=== PATIENT | male | born 1980 | race American Indian/Alaskan Native ===

== ENCOUNTER 2019-12-30 14:03 | Emergency (ER) | payer MEDICAID ==
[2019-12-30 14:17] VITALS: BP 118/75
--- NOTE | 2019-12-30 14:19 | Emergency Department Report ---
ED Lower Extremity HPI - General Chief Complaint: Extremity Injury, Lower Stated Complaint: LEFT FOOT HURTS/MIDDLE TOE HUI Time Seen by Provider: 12/30/19 14:15 Source: patient Mode of arrival: Ambulatory Limitations: No Limitations - History of Present Illness Initial Comments: This is a 39-year-old male nontoxic, well nourished in appearance, no acute signs of distress presents to the ED with c/o of chronic left foot pain. Patient stated symptoms of pain is intermittent x3 years. Patient denies any new trauma or injuries. Denies decreased ROM, joint swelling, redness, or abnormal gait. Denies any fever, chills, nausea, vomiting, headache, stiff neck, chest pain or shortness of breath. Patient denies any numbness or tingling. Denies any allergies. MD Complaint: foot injury -: year(s) Injury: Foot: Left Severity: mild Severity scale (0 -10): 3 Improves With: nothing Worsens With: nothing Associated Symptoms: ambulatory. denies: snap/pop sensation, swelling, numbness, tingling, unable to bear weight, able to partially bear weight - Related Data Previous Rx's Medication Instructions Recorded Last Taken Type Benztropine [Cogentin] 1 mg PO DAILY #30 tablet 12/20/14 Unknown Rx risperiDONE [RisperDAL] 1 mg PO DAILY #30 tablet 12/20/14 Unknown Rx Allergies Allergy/AdvReac Type Severity Reaction Status Date / Time No Known Allergies Allergy Verified 12/30/19 14:08 ED Review of Systems ROS: Stated complaint: LEFT FOOT HURTS/MIDDLE TOE HUI Other details as noted in HPI Constitutional: denies: chills, fever Eyes: denies: eye pain, eye discharge, vision change ENT: denies: ear pain, throat pain Respiratory: denies: cough, shortness of breath, wheezing Cardiovascular: denies: chest pain, palpitations Endocrine: no symptoms reported Gastrointestinal: denies: abdominal pain, nausea, diarrhea Genitourinary: denies: urgency, dysuria Musculoskeletal: denies: back pain, joint swelling, arthralgia Skin: denies: rash, lesions Neurological: denies: headache, weakness, paresthesias Psychiatric: denies: anxiety, depression Hematological/Lymphatic: denies: easy bleeding, easy bruising ED Past Medical Hx - Past Medical History Previous Medical History?: Yes Hx Psychiatric Treatment: Yes Additional medical history: schizophrenia - Surgical History Past Surgical History?: No - Social History Smoking Status: Never Smoker Substance Use Type: None - Medications Home Medications: Home Medications Medication Instructions Recorded Confirmed Last Taken Type Benztropine [Cogentin] 1 mg PO DAILY #30 tablet 12/20/14 12/21/14 Unknown Rx risperiDONE [RisperDAL] 1 mg PO DAILY #30 tablet 12/20/14 12/21/14 Unknown Rx ED Physical Exam - General Limitations: No Limitations General appearance: alert, in no apparent distress - Head Head exam: Present: atraumatic, normocephalic - Extremities Exam Extremities exam: Present: normal inspection, full ROM, normal capillary refill, other (left middle toe callus). Absent: tenderness, joint swelling, calf tenderness - Back Exam Back exam: Present: normal inspection, full ROM - Neurological Exam Neurological exam: Present: alert, oriented X3, normal gait - Psychiatric Psychiatric exam: Present: normal affect, normal mood - Skin Skin exam: Present: warm, dry, intact, normal color. Absent: rash ED Course - Reevaluation(s) Reevaluation #1: 12/30/19 14:18 Patient is speaking in full sentences with no signs of distress noted. ED Lower Extremity MDM - Medical Decision Making This is a 39-year-old male that presents with chronic callus pain. Patient is stable and was examined by me. Exam does not show any acute conditions. No joint effusion, no redness, no decreased ROM. Normal gait. Patient was instructed to Follow-up with a orthopedic doctor in 3-5 days or if symptoms worsen and continue return to emergency room as soon as possible. At time of discharge, the patient does not seem toxic or ill in appearance. No acute signs of distress noted. Patient agrees to discharge treatment plan of care. No further questions noted by the patient. Critical care attestation.: If time is entered above; I have spent that time in minutes in the direct care of this critically ill patient, excluding procedure time. ED Disposition Clinical Impression: Chronic toe pain, left foot Disposition: Z MED SCREENING EXAM-LEFT Is pt being admited?: No Does the pt Need Aspirin: No Condition: Stable Additional Instructions: Follow-up with a orthopedic doctor in 3-5 days or if symptoms worsen and continue return to emergency room as soon as possible. Referrals: PRIMARY CARE, [Referring] - 3-5 Days TIFFANIE GOLDEN MD [Staff Physician] - 3-5 Days DARIA HAYNES MD [Staff Physician] - 3-5 Days
== END 2019-12-30 14:30 | disposition left against medical advice (07) ==
LOC: ED 14:03
DX: M79.675 Pain in left toe(s) (principal); G89.29 Other chronic pain; F20.9 Schizophrenia, unspecified
CPT/HCPCS: 99282

== ENCOUNTER 2020-01-12 17:18 | Emergency (ER) | payer MEDICAID ==
[2020-01-12 17:43] VITALS: BP 105/66
--- NOTE | 2020-01-12 18:04 | Emergency Department Report ---
ED General Adult HPI - General Chief complaint: Psych Stated complaint: NEEDS MENTAL EVAL Time Seen by Provider: 01/12/20 17:56 Source: patient, RN notes reviewed, old records reviewed Mode of arrival: Ambulatory Limitations: No Limitations - History of Present Illness Initial comments: Patient is a 39-year-old gentleman. He is not known to myself previously. He presents to the ER today with a primary complaint of request for Risperdal refill. Patient was following up at the [facility], was taking 2 mg daily, however, he reports that he ran out of his prescription 2 months ago, and he indicates that the aforementioned facility dropped him as a patient He reports that he has to get some "paperwork back to them", in order to be reestablished as a patient. He denies physical pain at this time, and has passive suicidality for months. However, the patient states he does not want to actively harm himself, that he wants to live, and that he does not have access to guns, firearms, and he is not homicidal. He has chronic hallucinations. The patient is informed that there are many patients with coronavirus in this emergency room, and he states "I definitely do not want to get that." He also states that he came here today primarily, instead of going to a psychiatric facility, because this is what he is done in the past. He states that if he were cleared, or given instructions on how to get to a psychiatric facility, such as [place] [place], or [place], he would be able to get there on his own, taking public transportation. He denies physical pain at this time. -: week(s), month(s) Consistency: constant Improves with: none Worsens with: none Associated Symptoms: denies other symptoms - Related Data Previous Rx's Medication Instructions Recorded Last Taken Type Benztropine [Cogentin] 1 mg PO DAILY #30 tablet 12/20/14 Unknown Rx risperiDONE [RisperDAL] 1 mg PO DAILY #30 tablet 12/20/14 Unknown Rx Allergies Allergy/AdvReac Type Severity Reaction Status Date / Time No Known Allergies Allergy Verified 12/30/19 14:08 ED Review of Systems ROS: Stated complaint: NEEDS MENTAL EVAL Other details as noted in HPI Comment: All other systems reviewed and negative Psychiatric: other ED Past Medical Hx - Past Medical History Previous Medical History?: Yes Hx Psychiatric Treatment: Yes Additional medical history: schizophrenia - Surgical History Past Surgical History?: No - Social History Smoking Status: Never Smoker Substance Use Type: None - Medications Home Medications: Home Medications Medication Instructions Recorded Confirmed Last Taken Type Benztropine [Cogentin] 1 mg PO DAILY #30 tablet 12/20/14 12/21/14 Unknown Rx risperiDONE [RisperDAL] 1 mg PO DAILY #30 tablet 12/20/14 12/21/14 Unknown Rx ED Physical Exam - General Limitations: No Limitations General appearance: alert, in no apparent distress - Head Head exam: Present: atraumatic, normocephalic - Eye Eye exam: Present: normal appearance, EOMI, other (Visual acuity intact to finger counting, color perception, reading at a close distance). Absent: nystagmus - ENT ENT exam: Present: normal exam, normal orophraynx, mucous membranes moist, normal external ear exam - Neck Neck exam: Present: normal inspection, full ROM. Absent: tenderness, meningismus - Respiratory Respiratory exam: Present: normal lung sounds bilaterally. Absent: respiratory distress - Cardiovascular Cardiovascular Exam: Present: regular rate, normal rhythm, normal heart sounds. Absent: bradycardia, tachycardia, irregular rhythm, systolic murmur, diastolic murmur, rubs, gallop - GI/Abdominal GI/Abdominal exam: Present: soft. Absent: distended, tenderness, guarding, rebound, rigid, pulsatile mass - Rectal Rectal exam: Present: deferred - Extremities Exam Extremities exam: Present: normal inspection, full ROM, other (2+ pulses noted in the bilateral upper and lower extremities. There is no palpable cord. negative Homans sign. Muscular compartments are soft. The pelvis is stable.). Absent: pedal edema, calf tenderness - Back Exam Back exam: Present: normal inspection, full ROM. Absent: tenderness, CVA ten derness (R), CVA tenderness (L), paraspinal tenderness, vertebral tenderness - Neurological Exam Neurological exam: Present: alert, oriented X3, normal gait, other (There is no facial droop. The tongue is midline. Extraocular movements are intact bilaterally. There is 5 out of 5 strength in bilateral upper and lower extremities. Sensation is intact to light touch bilateral upper and lower extremities. There is a normal gait.). Absent: motor sensory deficit - Psychiatric Psychiatric exam: Present: flat affect. Absent: agitated, manic, homicidal ideation - Skin Skin exam: Present: warm, dry, intact, normal color. Absent: rash ED Course Vital Signs 01/12/20 17:42 Temperature 98.6 F Pulse Rate 62 Respiratory 18 Rate Blood Pressure 105/66 [Right] O2 Sat by Pulse 98 Oximetry - Reevaluation(s) Reevaluation #1: 01/12/20 18:24 Differential diagnosis, including but not limited to: Medication refill, general medical examination Assessment and plan: 39-year-old gentleman, who is afebrile with reassuring vital signs, pleasant, calm and cooperative, with chronic hallucinations, and chronic passive thoughts of self-harm. However, when I engage the patient, he tells me that he is able to take public transportation to get to a psychiatric facility, he is very concerned about the risk of exposure to coronavirus, and he does not want to get coronavirus, and he does not want to from coronavirus. He tells me that he came here today primarily because this is what he has done in the past. He indicates to me if I am able to refill his medicine, that he will be able to follow-up, and he states that he has things in his life that he wants to live for. Reevaluation #2: 01/12/20 18:54 Resting comfortably at this time, and in no acute distress. Patient is evaluated by mental health liaison, who has in turn presents of the case to Dr. Lenora Oconnor, who has graciously agreed to call the patient's prescriptions at a local [facility] pharmacy. We all are in agreement that the patient does not meet criteria for 1013 hold or involuntary hold at this time. Patient will be given a nocturnal dose of Risperdal here in the emergency room, and he will be instructed to go to the local pharmacy to oyster picker his prescriptions. He is also given resources for outpatient follow-up ED Medical Decision Making - Lab Data Result diagrams: 01/12/20 18:04 01/12/20 18:04 Vital Signs 01/12/20 17:42 Temperature 98.6 F Pulse Rate 62 Respiratory 18 Rate Blood Pressure 105/66 [Right] O2 Sat by Pulse 98 Oximetry - EKG Data -: EKG Interpreted by Me EKG shows normal: sinus rhythm Rate: bradycardia - EKG Data 01/12/20 18:28 Sinus rhythm, bradycardia, normal axis, QTC within normal limits, Q waves noted in the inferior leads, high left ventricular voltage, the EKG is abnormal, there is no prior for comparison, the EKG is not a STEMI. Critical care attestation.: If time is entered above; I have spent that time in minutes in the direct care of this critically ill patient, excluding procedure time. ED Disposition Clinical Impression: Medication refill, General medical exam Disposition: - TO HOME OR SELFCARE Is pt being admited?: No Does the pt Need Aspirin: No Condition: Stable Additional Instructions: Avoid consumption of alcohol, recreational drugs, marijuana, smoke products. Patient may follow-up at the following pharmacy as soon as possible to oyster picker his outpatient prescriptions: [facility]: Address: [address] [place] [id number] At this point in time, the patient does not appear to have an immediate medical contraindication to outpatient follow-up, however, if the patient would like to seek voluntary psychiatric treatment, at the current time, he does not have an immediate medical contraindication to psychiatric therapy, and evaluation, consultation and placement if he so desires. Patient may follow-up with any of the outpatient psychiatric facilities as follows: Professional and Agency Contacts To help [facility](28/04) [place] Crisis Line: Suicide Prevention Line: Crisis Text Line: Text START to 666199 Emergency: 911 Outpatient COMMUNITY Behavioral Health Resources: [place]KALB: [facility] [address] [place], [place] [address] KATHRYN: [facility] - [address] [place] [address] Friday thru Friday - 8am - 5pm [facility] Address: [address] [place] [address] Friday thru Friday- 7am-2pm [facility] Address: [address] [place] [address] Friday thrfriday: 8:30AM-5PM [facility] NEED HELP? People experiencing homelessness seek refuge at [place] five days a week in need of help for a wide range of problems, ranging from the working poor sleeping in a car, women and children escaping domestic violence, and people who have no means of care home. If you are in need of help or know someone who does, please contact us at [email or web address] call , or come to our offices at [address] [place] [address], Friday-Friday beginning at 8AM. [facility] Address: [address] [place] [address] Client Engagement [phone] Regular program admission occurs Friday through Friday at 7:00 amand operates o n a first come, first serve basis.Because we cant anticipate program availability in advance andprogram spots are in high demand, we recommend arriving early. Space fills up fast! Next steps can include: Assignment to a [facility] program bed Connection to and placement in a partner program, or Referral to a partner agency City of Refuge: [facility] Address: [address] [place] [address] How do I join the [facility] housing program? Our housing programs are offered based on availability. If you are looking to participate in our housing program, simply call [phone] to find out if we have available space. If you get the voicemail, make sure to leave your name, best contact number to reach you, your need, and if you have children that would need housing as well. Since we do receive many calls, please allow up to 48 hours for one of our housing specialists to return your call. If we do not have vacancies, we suggest callingthe [facility] hotline at 211 for additional housing options. Follow-up with the primary medical doctor within the next 4 to 6 weeks. Patient should wash his hands very thoroughly with soap and water, not touch his hands to his face, eyes or mouth, the patient should return to the emergency room right away with new, worsened or different symptoms, or symptoms not present on the initial emergency room evaluation. Referrals: DARIA HAYNES MD [Staff Physician] - as needed [facility] [Provider Group] - as needed [facility] [Provider Group] - as needed
[2020-01-12 18:33] LABS: Hematocrit 41.4 % (35.5-45.6); Hemoglobin 13.8 gm/dl (11.8-15.2); Mean Corpuscular HGB Conc 33 % (32-34); Mean Corpuscular Volume 83 fl (84-94); Platelet Count 186 K/mm3 (140-440); Red Cell Distribution Width 15.2 % (13.2-15.2)
[2020-01-12 18:50] LABS: BUN/Creatinine Ratio 10; Blood Urea Nitrogen 12 mg/dL (9-20); Calcium 9.1 mg/dL (8.4-10.2); Hemolysis Index 14
[2020-01-12] MEDS ORDERED: risperiDONE 1 MG TAB PO ONE (18:52)
[2020-01-13] MEDS ORDERED: risperiDONE 1 MG TAB PO SCH (10:00)
[2020-01-13] MEDS ORDERED: BENZTROPINE 1 MG TAB PO SCH (10:00)
== END 2020-01-12 19:30 | disposition home or self-care (01) ==
LOC: ED 17:18
DX: F20.9 Schizophrenia, unspecified (principal); Z76.0 Encounter for issue of repeat prescription
CPT/HCPCS: 36415; 80048; 80320; 82550; 85027; 93005; 93010; 99284; G0480

== ENCOUNTER 2020-01-21 23:06 | Emergency (ER) | payer MEDICAID ==
[2020-01-22 00:12] LABS: Bilirubin,Urine NEG (Negative); Blood,Urine NEG (Negative); Color,Urine Yellow (Yellow); Mucus,Urine FEW /HPF; Protein,Urine <15 mg/dL mg/dL (Negative); Urobilinogen,Urine < 2.0 mg/dL (<2.0); WBC,Urine < 1.0 /HPF (0.0-6.0)
[2020-01-22 00:20] LABS: Amphetamine Screen,Urine PRESUMPTIVE NEGATIVE; Benzodiazepines Screen,Urine PRESUMPTIVE NEGATIVE; Cocaine Screen,Urine PRESUMPTIVE NEGATIVE; Methadone Screen,Urine PRESUMPTIVE NEGATIVE; Opiate Screen,Urine PRESUMPTIVE NEGATIVE
[2020-01-22 00:24] LABS: Basophils % (Auto) 0.9 % (0.0-1.8); Eosinophils # (Auto) 0.1 K/mm3 (0.0-0.4); Eosinophils % (Auto) 2.7 % (0.0-4.3); Lymphocytes # (Auto) 1.4 K/mm3 (1.2-5.4); Lymphocytes % (Auto) 39.7 % (13.4-35.0); Mean Corpuscular HGB Conc 34 % (32-34); Mean Corpuscular Volume 83 fl (84-94); Monocytes # (Auto) 0.3 K/mm3 (0.0-0.8); Monocytes % (Auto) 7.1 % (0.0-7.3); Platelet Count 203 K/mm3 (140-440); Red Blood Count 4.57 M/mm3 (3.65-5.03); Red Cell Distribution Width 15.4 % (13.2-15.2)
[2020-01-22 00:30] LABS: BUN/Creatinine Ratio 7; Blood Urea Nitrogen 8 mg/dL (9-20); Hemolysis Index 6
[2020-01-22 00:39] LABS: Cannabinoid Screen,Urine PRESUMPTIVE POSITIVE
--- NOTE | 2020-01-22 00:56 | Emergency Department Report ---
<TYRONE KLEIN - Last Filed: 01/22/20 00:53> ED Psych HPI - General Chief Complaint: Medical Clearance Stated Complaint: ERAN GUERRERO Time Seen by Provider: 01/21/20 23:45 Source: patient Mode of arrival: Ambulatory Limitations: No Limitations - History of Present Illness Initial Comments: 39-year-old male with a past medical history of schizophrenia presents to the hospital stating that he needs placement into a psychiatric facility for treatment of schizophrenia. Patient is hearing voices that "stressed him out". He states that he is having intermittent conflicts with his family. He denies suicidal or homicidal ideation. Since October patient has been on q. monthly shots for his psychiatric disorder with last dose received yesterday. He is not currently on any oral antipsychotics and denies alcohol or drug abuse. No physical complaints reported - Related Data Previous Rx's Medication Instructions Recorded Last Taken Type Benztropine [Cogentin] 1 mg PO DAILY #30 tablet 01/12/20 Unknown Rx risperiDONE [RisperDAL] 2 mg PO QDAY #60 tablet 01/12/20 Unknown Rx Allergies Allergy/AdvReac Type Severity Reaction Status Date / Time No Known Allergies Allergy Verified 12/30/19 14:08 ED Review of Systems Comment: All other systems reviewed and negative ED Past Medical Hx - Past Medical History Previous Medical History?: Yes Hx Psychiatric Treatment: Yes Additional medical history: schizophrenia - Surgical History Past Surgical History?: No - Social History Smoking Status: Current Every Day Smoker Substance Use Type: None - Medications Home Medications: Home Medications Medication Instructions Recorded Confirmed Last Taken Type Benztropine [Cogentin] 1 mg PO DAILY #30 tablet 01/12/20 01/22/20 Unknown Rx risperiDONE [RisperDAL] 2 mg PO QDAY #60 tablet 01/12/20 01/22/20 Unknown Rx ED Physical Exam - General Limitations: No Limitations - Other Other exam information: General: No acute distress Head: Atraumatic Eyes: normal appearance ENT: Moist mucous membranes Neck: Normal appearance, no midline tenderness Chest: Clear to auscultation bilaterally CV: Regular rate and rhythm Abdomen: Soft, normal bowel sounds, nontender, nondistended, no rebound or guarding Back: Normal inspection Extremity: Normal inspection, full range of motion Neuro: Alert O x 3, no facial asymmetry, speech clear, no gross motor sensory deficit Psych: Appropriate behavior Skin: No rash ED Medical Decision Making - Lab Data Result diagrams: 01/21/20 23:55 01/21/20 23:55 Lab Results 01/21/20 01/21/20 01/21/20 Range/Units 23:45 23:45 23:55 WBC 3.6 L (4.5-11.0) K/mm3 RBC 4.57 (3.65-5.03) M/mm3 Hgb 13.0 (11.8-15.2) gm/dl Hct 38.0 (35.5-45.6) % MCV 83 L (84-94) fl MCH 29 (28-32) pg MCHC 34 (32-34) % RDW 15.4 H (13.2-15.2) % Plt Count 203 (140-440) K/mm3 Lymph % (Auto) 39.7 H (13.4-35.0) % [place] % (Auto) 7.1 (0.0-7.3) % Eos % (Auto) 2.7 (0.0-4.3) % Baso % (Auto) 0.9 (0.0-1.8) % Lymph # 1.4 (1.2-5.4) K/mm3 [place] # 0.3 (0.0-0.8) K/mm3 Eos # 0.1 (0.0-0.4) K/mm3 Baso # 0.0 (0.0-0.1) K/mm3 Seg Neutrophils % 49.6 (40.0-70.0) % Seg Neutrophils # 1.8 (1.8-7.7) K/mm3 Sodium (137-145) mmol/L Potassium (3.6-5.0) mmol/L Chloride (98-107) mmol/L Carbon Dioxide (22-30) mmol/L Anion Gap mmol/L BUN (9-20) mg/dL Creatinine (0.8-1.5) mg/dL Estimated GFR ml/min BUN/Creatinine Ratio % Glucose (75-100) mg/dL Calcium (8.4-10.2) mg/dL Urine Color Yellow (Yellow) Urine Turbidity Clear (Clear) Urine pH 6.0 (5.0-7.0) Ur Specific [place] 1.010 (1.003-1.030) Urine Protein <15 mg/dl (Negative) mg/dL Urine Glucose (UA) Neg (Negative) mg/dL Urine Ketones Neg (Negative) mg/dL Urine Blood Neg (Negative) Urine Nitrite Neg (Negative) Urine Bilirubin Neg (Negative) Urine Urobilinogen < 2.0 (<2.0) mg/dL Ur Leukocyte Esterase Neg (Negative) Urine WBC (Auto) < 1.0 (0.0-6.0) /HPF Urine RBC (Auto) 1.0 (0.0-6.0) /HPF Urine Mucus Few /HPF Salicylates (2.8-20.0) mg/dL Urine Opiates Screen Presumptive negative Urine Methadone Screen Presumptive negative Acetaminophen (10.0-30.0) ug/mL Ur Barbiturates Screen Presumptive negative Ur Phencyclidine Scrn Presumptive negative Ur Amphetamines Screen Presumptive negative U Benzodiazepines Scrn Presumptive negative Urine Cocaine Screen Presumptive negative U Marijuana (THC) Screen Presumptive positive Drugs of Abuse Note Disclamer Plasma/Serum Alcohol (0-0.07) % 01/21/20 01/21/20 01/21/20 Range/Units 23:55 23:55 23:55 WBC (4.5-11.0) K/mm3 RBC (3.65-5.03) M/mm3 Hgb (11.8-15.2) gm/dl Hct (35.5-45.6) % MCV (84-94) fl MCH (28-32) pg MCHC (32-34) % RDW (13.2-15.2) % Plt Count (140-440) K/mm3 Lymph % (Auto) (13.4-35.0) % [place] % (Auto) (0.0-7.3) % Eos % (Auto) (0.0-4.3) % Baso % (Auto) (0.0-1.8) % Lymph # (1.2-5.4) K/mm3 [place] # (0.0-0.8) K/mm3 Eos # (0.0-0.4) K/mm3 Baso # (0.0-0.1) K/mm3 Seg Neutrophils % (40.0-70.0) % Seg Neutrophils # (1.8-7.7) K/mm3 Sodium 141 (137-145) mmol/L Potassium 3.5 L (3.6-5.0) mmol/L Chloride 106.5 (98-107) mmol/L Carbon Dioxide 24 (22-30) mmol/L Anion Gap 14 mmol/L BUN 8 L (9-20) mg/dL Creatinine 1.2 (0.8-1.5) mg/dL Estimated GFR > 60 ml/min BUN/Creatinine Ratio 7 % Glucose 132 H (75-100) mg/dL Calcium 9.0 (8.4-10.2) mg/dL Urine Color (Yellow) Urine Turbidity (Clear) Urine pH (5.0-7.0) Ur Specific [place] (1.003-1.030) Urine Protein (Negative) mg/dL Urine Glucose (UA) (Negative) mg/dL Urine Ketones (Negative) mg/dL Urine Blood (Negative) Urine Nitrite (Negative) Urine Bilirubin (Negative) Urine Urobilinogen (<2.0) mg/dL Ur Leukocyte Esterase (Negative) Urine WBC (Auto) (0.0-6.0) /HPF Urine RBC (Auto) (0.0-6.0) /HPF Urine Mucus /HPF Salicylates < 0.3 L (2.8-20.0) mg/dL Urine Opiates Screen Urine Methadone Screen Acetaminophen < 5.0 L (10.0-30.0) ug/mL Ur Barbiturates Screen Ur Phencyclidine Scrn Ur Amphetamines Screen U Benzodiazepines Scrn Urine Cocaine Screen U Marijuana (THC) Screen Drugs of Abuse Note Plasma/Serum Alcohol (0-0.07) % 01/21/20 Range/Units 23:55 WBC (4.5-11.0) K/mm3 RBC (3.65-5.03) M/mm3 Hgb (11.8-15.2) gm/dl Hct (35.5-45.6) % MCV (84-94) fl MCH (28-32) pg MCHC (32-34) % RDW (13.2-15.2) % Plt Count (140-440) K/mm3 Lymph % (Auto) (13.4-35.0) % [place] % (Auto) (0.0-7.3) % Eos % (Auto) (0.0-4.3) % Baso % (Auto) (0.0-1.8) % Lymph # (1.2-5.4) K/mm3 [place] # (0.0-0.8) K/mm3 Eos # (0.0-0.4) K/mm3 Baso # (0.0-0.1) K/mm3 Seg Neutrophils % (40.0-70.0) % Seg Neutrophils # (1.8-7.7) K/mm3 Sodium (137-145) mmol/L Potassium (3.6-5.0) mmol/L Chloride (98-107) mmol/L Carbon Dioxide (22-30) mmol/L Anion Gap mmol/L BUN (9-20) mg/dL Creatinine (0.8-1.5) mg/dL Estimated GFR ml/min BUN/Creatinine Ratio % Glucose (75-100) mg/dL Calcium (8.4-10.2) mg/dL Urine Color (Yellow) Urine Turbidity (Clear) Urine pH (5.0-7.0) Ur Specific [place] (1.003-1.030) Urine Protein (Negative) mg/dL Urine Glucose (UA) (Negative) mg/dL Urine Ketones (Negative) mg/dL Urine Blood (Negative) Urine Nitrite (Negative) Urine Bilirubin (Negative) Urine Urobilinogen (<2.0) mg/dL Ur Leukocyte Esterase (Negative) Urine WBC (Auto) (0.0-6.0) /HPF Urine RBC (Auto) (0.0-6.0) /HPF Urine Mucus /HPF Salicylates (2.8-20.0) mg/dL Urine Opiates Screen Urine Methadone Screen Acetaminophen (10.0-30.0) ug/mL Ur Barbiturates Screen Ur Phencyclidine Scrn Ur Amphetamines Screen U Benzodiazepines Scrn Urine Cocaine Screen U Marijuana (THC) Screen Drugs of Abuse Note Plasma/Serum Alcohol < 0.01 (0-0.07) % - Medical Decision Making Mental health consulted. At this time patient does not meet 1013 criteria ED Disposition Clinical Impression: Marijuana abuse Schizophrenia Qualifiers: Schizophrenia type: other Qualified Code(s): F20.89 - Other schizophrenia; F20.8 - Other schizophrenia Disposition: DC-01 TO HOME OR SELFCARE Is pt being admited?: No Condition: Stable Instructions: Schizophrenia (ED) Additional Instructions: Take the medication as prescribed. Follow-up with your doctor or doctor/clinic provided. Return if symptoms worsen as indicated by your discharge instructions. Referrals: LISA NOBLE MD [Primary Care Provider] - [facility] Days <HIMANSHU AVALOS - Last Filed: 01/22/20 14:01> ED Review of Systems ROS: Stated complaint: MH EVAL Other details as noted in HPI ED Course Vital Signs 01/21/20 01/21/20 01/22/20 23:10 23:35 00:16 Temperature 97.6 F 98.2 F 98.2 F Pulse Rate 67 70 90 Respiratory 20 16 16 Rate Blood Pressure 108/61 Blood Pressure 112/65 112/65 [Left] O2 Sat by Pulse 98 98 98 Oximetry 01/22/20 04:16 Temperature 97.9 F Pulse Rate 53 L Respiratory 16 Rate Blood Pressure Blood Pressure 102/49 [Left] O2 Sat by Pulse 96 Oximetry - Reevaluation(s) Reevaluation #1: 01/22/20 14:00 JUAN C OLSEN Male : 1980 MedRec# [id number] 01/22/20 12:00 - 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 Pt denies substance use; although tox is positive for marijuana. Then the pt laughed, "ok I lied I smoke." Pt denies suicidal ideation, plans or intent. Pt denies past suicide attempts. Pt denies homicidal ideation, plans or intent. Pt reports history of aggression and incarceration; pt will not provide details. Pt is displaying no evidence of thought disorder/psychosis. Pt reports no AH or VH. Pt is able to vocalize his needs (housing, place to shower and to eat). Pt has good eye contact and is oriented x 4 with calm mood and congruent affect. Pt is displaying fair insight and judgment. Pt carries a diagnosis of Schizophrenia. Pt has no outpatient providers at this point as he has not been compliant with going to the [facility] as recommended at the previous time that he came to this hospital 10 days ago with similar complaints; pt reports that he picked up his medications, but he is in a study at the [facility] (Jul 2019 to March 2020) and they are doing a new study on medication and pt reports he gets an injection each month; so, pt reports he is unable to take his regular prescribed outpatient medications outside of the medication in the study. Pt is requesting housing. RECOMMENDATION: Pt requests housing, place to shower and eat; pt will be referred to case management and cleared by psyc w/ outpatient referrals that he can follow up with as needed as the pt reports no SI, no HI and no AH/VH. Nadia Cruz LPC Initialized on 01/22/20 12:00 - END OF NOTE Reevaluation #2: 01/22/20 14:00 Patient is been medically cleared by our mental health team and has been discharged home. ED Medical Decision Making - Lab Data Result diagrams: 01/21/20 23:55 01/21/20 23:55 Critical care attestation.: If time is entered above; I have spent that time in minutes in the direct care of this critically ill patient, excluding procedure time. ED Disposition Is pt being admited?: No Does the pt Need Aspirin: No Time of Disposition: 14:00
[2020-01-22 04:18] VITALS: BP 102/49
== END 2020-01-22 14:23 | disposition home or self-care (01) ==
LOC: ED 23:06
DX: F20.89 Other schizophrenia (principal); F12.10 Cannabis abuse, uncomplicated; F17.200 Nicotine dependence, unspecified, uncomplicated
CPT/HCPCS: 36415; 80048; 80307; 80320; 81001; 85025; G0480

== ENCOUNTER 2020-01-25 21:33 | Emergency (ER) | payer MEDICAID ==
[2020-01-25 21:46] VITALS: BP 117/74
--- NOTE | 2020-01-25 21:54 | Emergency Department Report ---
Stated Complaint: EVAL - HPI History of Present Illness: 39-year-old male with a past medical history of schizophrenia presents to the hospital stating that he needs placement has chronic homelessness and requesting a place to stay. He states that he is having intermittent conflicts with his family. He denies suicidal or homicidal ideation. - Exam Vital Signs: Vital Signs 01/25/20 21:37 Temperature 98.6 F Pulse Rate 64 Respiratory 20 Rate Blood Pressure 117/74 O2 Sat by Pulse 98 Oximetry MSE screening note: Focused history and physical exam performed. Due to findings the following was ordered: 39-year-old male with a past medical history of schizophrenia presents to the hospital stating that he needs placement has chronic homelessness and requesting a place to stay. He states that he is having intermittent conflicts with his family. He denies suicidal or homicidal ideation. Dr. Hinkle came to speak with patient in Triage. ED Disposition for MSE Clinical Impression: General medical exam Disposition: Z-07 MED SCREENING EXAM-LEFT Is pt being admited?: No Does the pt Need Aspirin: No Condition: Stable Additional Instructions: Follow up with your mental health provider. Referrals: [facility] [Outside] - 3-5 Days
== END 2020-01-25 22:15 | disposition left against medical advice (07) ==
LOC: ED 21:33
DX: Z00.00 Encounter for general adult medical examination without abnormal findings (principal); Z59.0 Homelessness
CPT/HCPCS: 99281

== ENCOUNTER 2020-03-03 13:02 | Emergency (ER) | payer MEDICAID ==
[2020-03-03 13:10] VITALS: BP 126/77
--- NOTE | 2020-03-03 13:32 | Emergency Department Report ---
ED Lower Extremity HPI - General Chief Complaint: Extremity Problem,Nontraumatic Stated Complaint: LT FOOT PAIN Time Seen by Provider: 03/03/20 13:15 Source: patient Mode of arrival: Ambulatory Limitations: No Limitations - History of Present Illness Initial Comments: This is a 39-year-old male nontoxic, well nourished in appearance, no acute signs of distress presents to the ED with c/o of left foot pain 3 years. Patient denies any trauma or injuries. Patient denies any numbness, tingling, fever, chills, nausea, vomiting, chest pain, shortness of breath, headache, stiff neck. Patient denies any joint swelling or joint redness. Patient denies decreased range of motion. Patient denies any decreased gait or abnormal gait. Patient denies any allergies. PMH includes ERAN. MD Complaint: foot injury -: year(s) Injury: Foot: Left Severity: mild Severity scale (0 -10): 3 Improves With: nothing Worsens With: nothing Associated Symptoms: ambulatory. denies: snap/pop sensation, swelling, numbness, tingling, unable to bear weight, able to partially bear weight - Related Data Previous Rx's Medication Instructions Recorded Last Taken Type Benztropine [Cogentin] 1 mg PO DAILY #30 tablet 01/12/20 Unknown Rx risperiDONE [RisperDAL] 2 mg PO QDAY #60 tablet 01/12/20 Unknown Rx Allergies Allergy/AdvReac Type Severity Reaction Status Date / Time No Known Allergies Allergy Verified 12/30/19 14:08 ED Review of Systems ROS: Stated complaint: LT FOOT PAIN Other details as noted in HPI Constitutional: denies: chills, fever Eyes: denies: eye pain, eye discharge, vision change ENT: denies: ear pain, throat pain Respiratory: denies: cough, shortness of breath, wheezing Cardiovascular: denies: chest pain, palpitations Endocrine: no symptoms reported Gastrointestinal: denies: abdominal pain, nausea, diarrhea Genitourinary: denies: urgency, dysuria Musculoskeletal: denies: back pain, joint swelling, arthralgia Skin: denies: rash, lesions Neurological: denies: headache, weakness, paresthesias Psychiatric: denies: anxiety, depression Hematological/Lymphatic: denies: easy bleeding, easy bruising ED Past Medical Hx - Past Medical History Previous Medical History?: Yes Hx Psychiatric Treatment: Yes Additional medical history: schizophrenia - Surgical History Past Surgical History?: No - Social History Smoking Status: Current Every Day Smoker Substance Use Type: Alcohol - Medications Home Medications: Home Medications Medication Instructions Recorded Confirmed Last Taken Type Benztropine [Cogentin] 1 mg PO DAILY #30 tablet 01/12/20 01/22/20 Unknown Rx risperiDONE [RisperDAL] 2 mg PO QDAY #60 tablet 01/12/20 01/22/20 Unknown Rx ED Physical Exam - General Limitations: No Limitations General appearance: alert, in no apparent distress - Head Head exam: Present: atraumatic, normocephalic - Extremities Exam Extremities exam: Present: normal inspection, full ROM, normal capillary refill. Absent: tenderness, joint swelling - Expanded Lower Extremity Exam Left Hip exam: Present: normal inspection, full ROM. Absent: tenderness, swelling Upper Leg exam: Present: normal inspection, full ROM. Absent: tenderness, swelling Knee exam: Present: normal inspection, full ROM. Absent: tenderness, swelling Lower Leg exam: Present: normal inspection, full ROM. Absent: tenderness, swelling Ankle exam: Present: normal inspection, full ROM. Absent: tenderness, swelling Foot/Toe exam: Present: normal inspection, full ROM. Absent: tenderness, swelling Neuro vascular tendon exam: Present: no vascular compromise Gait: Positive: observed and normal - Back Exam Back exam: Present: normal inspection, full ROM - Neurological Exam Neurological exam: Present: alert, oriented X3, normal gait - Psychiatric Psychiatric exam: Present: normal affect, normal mood - Skin Skin exam: Present: warm, dry, intact, normal color. Absent: rash ED Course Vital Signs 03/03/20 13:09 Temperature 98.3 F Pulse Rate 54 L Respiratory 20 Rate Blood Pressure 126/77 O2 Sat by Pulse 100 Oximetry - Reevaluation(s) Reevaluation #2: 03/03/20 13:33 Patient is speaking in full sentences with no signs of distress noted. ED Lower Extremity MDM - Medical Decision Making This is a 39-year-old male that presents with a nonmedical emergency. Patient has a chronic left foot pain. Upon exam there is no cellulitis, abscess, tenosynovitis or joint cellulitis. Exam is unremarkable with no tenderness. Patient will be referred to orthopedic for further evaluation and treatment. Patient also received Dr. Charles for chronic pain treatment. At time of discharge, the patient does not seem toxic or ill in appearance. No acute signs of distress noted. Patient agrees to discharge treatment plan of care. No further questions noted by the patient. Critical care attestation.: If time is entered above; I have spent that time in minutes in the direct care of this critically ill patient, excluding procedure time. ED Disposition Clinical Impression: Chronic toe pain, left foot Disposition: MED SCREENING EXAM-LEFT Is pt being admited?: No Does the pt Need Aspirin: No Condition: Stable Additional Instructions: Follow-up with a primary care and orthopedic doctor in 3-5 days or if symptoms worsen and continue return to emergency room as soon as possible. Referrals: PRIMARY MD JAY [Referring] - 3-5 Days DARIA CHARLES MD [Staff Physician] - 3-5 Days TIFFANIE GOLDEN MD [Staff Physician] - 3-5 Days
== END 2020-03-03 14:00 | disposition left against medical advice (07) ==
LOC: ED 13:02
DX: M79.675 Pain in left toe(s) (principal); M79.672 Pain in left foot; G89.29 Other chronic pain; F20.9 Schizophrenia, unspecified; F17.200 Nicotine dependence, unspecified, uncomplicated; Z79.899 Other long term (current) drug therapy
CPT/HCPCS: 99282